=== PATIENT | male | born 1980 | race Caucasian/White ===

== ENCOUNTER 2019-09-30 18:18 | Inpatient (IN) | payer MEDICAID ==
[~2019-09-30] VITALS: Ht 170.2 cm; Wt 79.8 kg
[2019-09-30] MEDS ORDERED: SODIUM CHLORIDE 0.9% 1,000 ML IV ONE (21:22)
[2019-09-30] MEDS ORDERED: ONDANSETRON HCL 4MG/2ML INJ IV STA (21:22)
[2019-09-30 21:40] LABS: MEAN CORPUSCULAR HEMOGLOBIN 20.3 pg (28.0-32.0); MEAN CORPUSCULAR VOLUME 67.3 fL (80.0-94.0); MEAN PLATELET VOLUME 8.8 fl (7.4-10.4); PLATELET 147 x1000/uL (130-400); RED BLOOD CELL COUNT 2.99 mill/uL (4.7-6.1)
[2019-09-30 21:45] LABS: CHLORIDE 100 mEq/L (98-107)
[2019-09-30 21:48] LABS: INR 1.6; PROTHROMBIN TIME 16.2 sec (9.6-11.0)
[2019-09-30 21:55] LABS: HEMOGLOBIN. 6.1 g/dL (14.0-18.0)
[2019-09-30 21:56] LABS: HEMATOCRIT. 20.1 % (42.0-52.0)
[2019-09-30 22:14] LABS: PLATELET ESTIMATE NORMAL
[2019-09-30] MEDS ORDERED: PANTOPRAZOLE SODIUM 40 MG/VIAL IV ONE (22:45)
[2019-09-30] MEDS ORDERED: IOHEXOL-300 100 ML BOTTLE ONE (23:16)
[2019-09-30] MEDS ORDERED: OCTREOTIDE ACETATE 50 MCG/ML 1ML IV STA (23:39)
[2019-09-30] MEDS ORDERED: OCTREOTIDE 1,000 MCG in SODIUM CHLORIDE 0.9% 100 ML IV STA (23:39)
[2019-10-01] MEDS ORDERED: ONDANSETRON HCL 4MG/2ML INJ ONE (01:41)
[2019-10-01] MEDS ORDERED: ONDANSETRON HCL 4MG/2ML INJ IV ONE (01:45)
[2019-10-01] MEDS ORDERED: CLONIDINE 0.1MG TABLET PO PRN (07:30)
[2019-10-01] MEDS ORDERED: ACETAMINOPHEN 325MG TABLET PO PRN ×2 (07:30)
[2019-10-01] MEDS ORDERED: GUAIFENESIN 200MG/10ML SUGAR FREE UDC PO PRN (07:30)
[2019-10-01] MEDS ORDERED: ONDANSETRON HCL 4MG/2ML INJ IV PRN (07:30)
[2019-10-01] MEDS ORDERED: IPRATROPIUM/ALBUTEROL 0.5-3(2.5)MG/3ML NEB ORI PRN (07:30)
[2019-10-01 08:12] LABS: HEMATOCRIT 21.2 % (42.0-52.0); HEMOGLOBIN 6.6 g/dL (14.0-18.0)
[2019-10-01] MEDS ORDERED: PHYTONADIONE 10 MG in DEXTROSE 5% WATER 50 ML IV SCH (08:30)
[2019-10-01] MEDS: DEXT 5%/0.45% NACL 1000ML 1,000 ML IV SCH ×2 (08:59→18:00)
[2019-10-01] MEDS ORDERED: PANTOPRAZOLE 80 MG in SODIUM CHLORIDE 0.9% 100 ML IV SCH ×4 (09:00)
[2019-10-01] MEDS ORDERED: OCTREOTIDE 1,000 MCG in SODIUM CHLORIDE 0.9% 98 ML IV SCH (11:00)
[2019-10-01] MEDS ORDERED: POTASSIUM CHLORIDE 20MEQ TABLET SR PO NR (11:45)
[2019-10-01 13:05] LABS: HEMOGLOBIN 6.9 g/dL (14.0-18.0)
[2019-10-01 13:06] LABS: HEMATOCRIT 21.1 % (42.0-52.0)
[2019-10-01] MEDS: METOCLOPRAMIDE HCL 10MG/2ML VIAL IV SCH ×2 (13:19→18:00)
[2019-10-01] MEDS: PANTOPRAZOLE SODIUM 40 MG/VIAL IV SCH (17:00)
[2019-10-01] MEDS ORDERED: OCTREOTIDE 1,000 MCG in SODIUM CHLORIDE 0.9% 100 ML IV ONE (21:00)
[2019-10-01] MEDS ORDERED: METOCLOPRAMIDE HCL 10MG/2ML VIAL IV ONE (22:00)
[2019-10-01] MEDS: OCTREOTIDE 1,000 MCG in SODIUM CHLORIDE 0.9% 98 ML IV SCH (22:10)
[2019-10-01 23:54] LABS: CHLORIDE 110 mEq/L (98-107)
[2019-10-01 23:58] LABS: INR 1.5; PROTHROMBIN TIME 15.3 sec (9.6-11.0)
[2019-10-01 23:59] LABS: BASOPHILS % 0.2 % (0.0-2.0); EOSINOPHILS % 0.1 % (0.0-5.0); HEMATOCRIT. 25.1 % (42.0-52.0); HEMOGLOBIN. 8.3 g/dL (14.0-18.0); LYMPHOCYTES % 9.6 % (20.0-50.0); MEAN CORPUSCULAR VOLUME 79.2 fL (80.0-94.0); MEAN PLATELET VOLUME 8.8 fl (7.4-10.4); NEUTROPHILS % 79.1 % (40.0-76.0); PLATELET 80 x1000/uL (130-400); RED BLOOD CELL COUNT 3.17 mill/uL (4.7-6.1); RED CELL DISTRIBUTION WIDTH 24.1 % (11.6-14.6)
[2019-10-02] VITALS (10 sets, daily range): BP systolic 103–136; BP diastolic 56–79
[2019-10-02] MEDS ORDERED: THIAMINE HCL 100 MG in SODIUM CHLORIDE 0.9% 100 ML IV NR (04:00)
[2019-10-02] MEDS: FOLIC ACID 1 MG,THIAMINE 100 MG,MVI-12 10 ML in DEXTROSE 5% WATER 1000 ML IV SCH ×4 (06:13)
[2019-10-02 06:16] LABS: HEMATOCRIT. 23.7 % (42.0-52.0); HEMOGLOBIN. 7.9 g/dL (14.0-18.0); MEAN CORPUSCULAR HEMOGLOBIN 26.1 pg (28.0-32.0); MEAN CORPUSCULAR VOLUME 78.2 fL (80.0-94.0); MEAN PLATELET VOLUME 8.6 fl (7.4-10.4); PLATELET 74 x1000/uL (130-400); RED BLOOD CELL COUNT 3.03 mill/uL (4.7-6.1); RED CELL DISTRIBUTION WIDTH 23.9 % (11.6-14.6)
[2019-10-02 06:23] LABS: CHLORIDE 110 mEq/L (98-107)
[2019-10-02 06:29] LABS: INR 1.4; PARTIAL THROMBOPLASTIN TIME 25.1 sec (23.4-31.0); PROTHROMBIN TIME 14.7 sec (9.6-11.0)
[2019-10-02] MEDS ORDERED: PHYTONADIONE 10MG/ML AMP SUBCUT NR (07:00)
[2019-10-02 08:24] LABS: PLATELET ESTIMATE DECREASED
[2019-10-02] MEDS ORDERED: PROPOFOL 200MG/20ML VIAL IV ONE ×2 (11:18→11:34)
[2019-10-02] MEDS ORDERED: SUCCINYLCHOLINE CHLORIDE 200MG/10ML IV ONE (11:18)
[2019-10-02] MEDS ORDERED: MIDAZOLAM HCL 5 MG/5 ML VIAL ONE (11:18)
[2019-10-02] MEDS ORDERED: PROPRANOLOL HCL 10MG TABLET PO NR (12:00)
[2019-10-02] MEDS: METOCLOPRAMIDE HCL 10MG/2ML VIAL IV SCH (19:48)
[2019-10-02] MEDS: PANTOPRAZOLE SODIUM 40 MG/VIAL IV SCH (19:48)
[2019-10-02] MEDS: DEXT 5%/0.45% NACL 1000ML 1,000 ML IV SCH (19:49)
[2019-10-02] MEDS: OCTREOTIDE 1,000 MCG in SODIUM CHLORIDE 0.9% 98 ML IV SCH (20:46)
[2019-10-02 21:24] LABS: HEMATOCRIT 22.2 % (42.0-52.0); HEMOGLOBIN 7.3 g/dL (14.0-18.0)
[2019-10-03] VITALS (10 sets, daily range): BP systolic 104–128; BP diastolic 55–75
[2019-10-03] MEDS: DEXT 5%/0.45% NACL 1000ML 1,000 ML IV SCH (00:16)
[2019-10-03] MEDS: FOLIC ACID 1 MG,THIAMINE 100 MG,MVI-12 10 ML in DEXTROSE 5% WATER 1000 ML IV SCH ×4 (06:34)
[2019-10-03] MEDS: METOCLOPRAMIDE HCL 10MG/2ML VIAL IV SCH (08:29)
[2019-10-03] MEDS: PANTOPRAZOLE SODIUM 40 MG/VIAL IV SCH (08:30)
[2019-10-03 08:40] LABS: CHLORIDE 111 mEq/L (98-107)
[2019-10-03 08:50] LABS: BASOPHILS % 0.6 % (0.0-2.0); HEMATOCRIT. 23.7 % (42.0-52.0); HEMOGLOBIN. 7.7 g/dL (14.0-18.0); LYMPHOCYTES % 22.9 % (20.0-50.0); MEAN CORPUSCULAR HEMOGLOBIN 26.4 pg (28.0-32.0); MEAN CORPUSCULAR VOLUME 81.1 fL (80.0-94.0); MEAN PLATELET VOLUME 9.4 fl (7.4-10.4); MONOCYTES % 9.4 % (2.0-8.0); NEUTROPHILS % 64.1 % (40.0-76.0); PLATELET 93 x1000/uL (130-400); RED BLOOD CELL COUNT 2.92 mill/uL (4.7-6.1); RED CELL DISTRIBUTION WIDTH 22.7 % (11.6-14.6)
[2019-10-03] MEDS ORDERED: PHYTONADIONE 10MG/ML AMP SUBCUT SCH (09:00)
[2019-10-03] MEDS ORDERED: PROPRANOLOL HCL 10MG TABLET PO SCH (09:00)
[2019-10-14 08:09] LABS: BARBITURATE SCREEN Negative ug/mL (Cutoff:0.1); BENZODIAZEPINE SCREEN Negative ng/mL (Cutoff:20); OPIATES SCREEN Negative ng/mL (Cutoff:5); PHENCYCLIDINE SCREEN Negative ng/mL (Cutoff:8)
== END 2019-10-03 10:00 | disposition left against medical advice (07) | DRG 197 ==
LOC: ER 18:18 → MICUSO 10-01 04:54 → CVICU 10-02 08:07 → MICUSO 10-02 10:33 → CVICU 10-02 14:56
PROVIDERS: ADMIT Internal Medicine; ATTEND Internal Medicine
PROC: 30233K1 Transfusion of Nonautologous Frozen Plasma into Peripheral Vein, Percutaneous Approach (ICD-10-PCS; principal; 2019-10-01)
PROC: 30233N1 Transfusion of Nonautologous Red Blood Cells into Peripheral Vein, Percutaneous Approach (ICD-10-PCS; 2019-10-01)
PROC: 0DJ08ZZ Inspection of Upper Intestinal Tract, Via Natural or Artificial Opening Endoscopic (ICD-10-PCS; 2019-10-01)
DX: I86.4 Gastric varices (principal); E44.0 Moderate protein-calorie malnutrition; D62 Acute posthemorrhagic anemia; D68.9 Coagulation defect, unspecified; Z53.29 Procedure and treatment not carried out because of patient's decision for other reasons; F10.20 Alcohol dependence, uncomplicated; D69.6 Thrombocytopenia, unspecified; K70.30 Alcoholic cirrhosis of liver without ascites; F17.210 Nicotine dependence, cigarettes, uncomplicated; K76.6 Portal hypertension; D72.825 Bandemia; Z68.27 Body mass index [BMI] 27.0-27.9, adult; Z79.899 Other long term (current) drug therapy
CPT/HCPCS: 36415; 71045; 74177; 76700; 80048; 80053; 80076; 80307; 80320; 82962; 83036; 85014; 85018; 85025; 86850; 86900; 86920; 86927; 93005; 93970; 99285; C9113; J0330; J2250; J2354; J2405; J2704; J2765; J3411; J3430; J3490; J7030; J7050; J7060; J7070; P9016; P9017; Q9967; G0480